=== PATIENT | male | born 1960 | race Caucasian/White ===

== ENCOUNTER 2016-09-28 18:24 | Inpatient (IN) | payer OTHER ==
[~2016-09-28] VITALS: Ht 177.8 cm; Wt 105.9 kg
[~2016-09-28 18:24] MED LIST: ACTOS30 MG PO; ADULT FOLDING1 EACH MC; AMARYL2 MG PO; AUGMENTIN875 MG PO; CELEXA20 MG PO; COUMADIN2.5 MG PO; CRESTOR10 MG PO; DAILY VALUE1 EACH PO; FERROUS SULFAT325 MG PO; JANUVIA100 MG PO; LIPITOR40 MG PO; LISINOPRIL10 MG PO; METFORMIN HCL500 MG PO; PERCOCET 5/31 TABLET PO; THERAFLU PO; VISTARIL25 MG PO
[2016-09-28 18:56] LABS: POINT-OF-CARE METER ID UU13113778
[2016-09-28 19:34] LABS: HEMATOCRIT 36.5 % (38.0-50.0); MCH 28.4 PG (29.0-34.0); MCHC 33.7 G/DL (30.0-36.0); MCV 84.3 FL (86-99); MEAN PLAT.VOLUME 9.5 uM^3 (9.0-12.4); PLATELET COUNT 212 K/uL (156-360); RBC DIS.WIDTH-CV 14.3 % (11.8-14.6); RED BLOOD COUNT 4.33 M/uL (4.00-5.50); WHITE BLOOD COUNT 5.2 K/uL (4.1-10.2)
[2016-09-28 19:42] LABS: CHLORIDE 105 mEq/L (99-109); SODIUM 139 mEq/L (136-147)
[2016-09-28 19:44] LABS: GLUCOSE 76 mg/dL (70-99)
[2016-09-28 19:45] LABS: ANION GAP 12 MEQ/L (2-14)
[2016-09-28 19:46] LABS: TOTAL BILIRUBIN 0.6 mg/dL (0.0-1.0)
[2016-09-28 19:47] LABS: ALKALINE PHOSPHATASE 80 IU/L (3-129)
[2016-09-28 19:48] LABS: GFR ESTIMATE (CALCULATED) > 59 mL/min/
[2016-09-28 19:49] LABS: UREA NITROGEN (BUN) 18 mg/dL (9-23)
[2016-09-28] MEDS ORDERED: FERROUS SULFAT325 MG PO (19:54)
[2016-09-28 19:56] LABS: LIPASE 46 U/L (1.0-51.0)
[2016-09-28] MEDS ORDERED: METFORMIN HCL500 MG PO (19:56)
[2016-09-28] MEDS ORDERED: LOPERAMIDE2 MG PO (19:57)
[2016-09-28] MEDS ORDERED: ONDANSETRON ODT8 MG PO (19:58)
[2016-09-28 23:09] LABS: ADD MIUA? NO; BILIRUBIN NEGATIVE; BLOOD NEGATIVE; COLOR YELLOW ((YELLOW)); GLUCOSE (STRIP) NEGATIVE; KETONES NEGATIVE; LEUKOCYTES NEGATIVE; NITRITE NEGATIVE; PROTEIN (STRIP) NEGATIVE; UCUL ADDED? NO; UROBILINOGEN 0.2 MG/DL (0.2-1.0)
[2016-09-29] VITALS (7 sets, daily range): BP systolic 96–132; BP diastolic 57–78
[2016-09-29 01:05] LABS: EOSINOPHIL (%) 4.1 % (0-5); EOSINOPHIL COUNT 0.2 K/uL (0-0.3); HEMATOCRIT 34.4 % (38.0-50.0); IMMATURE GRANULOCYTE (%) 0.2 % (0.0-0.7); IMMATURE GRANULOCYTE COUNT 0.1 K/uL; LYMPHOCYTE COUNT 2.3 K/uL (1.0-2.8); MCH 28.2 PG (29.0-34.0); MCHC 33.4 G/DL (30.0-36.0); MCV 84.3 FL (86-99); MEAN PLAT.VOLUME 9.8 uM^3 (9.0-12.4); MONOCYTE COUNT 0.5 K/uL (0-0.8); NEUTROPHIL (%) 46.1 % (45-76); NEUTROPHIL COUNT 2.7 K/uL (1.8-6.4); PLATELET COUNT 210 K/uL (156-360); RBC DIS.WIDTH-CV 14.3 % (11.8-14.6); RED BLOOD COUNT 4.08 M/uL (4.00-5.50); WHITE BLOOD COUNT 5.8 K/uL (4.1-10.2)
[2016-09-29 01:20] LABS: INTERNAL CONTROL VALID? YES
[2016-09-29 01:52] LABS: C DIFF TOXIN NEGATIVE (NEGATIVE)
[2016-09-29 02:00] LABS: PROBE CHECK PASS; SPECIMEN PROCESSING CONTROL PASS
[2016-09-29 06:11] LABS: HEMATOCRIT 32.9 % (38.0-50.0); MCH 28.1 PG (29.0-34.0); MCHC 32.8 G/DL (30.0-36.0); MCV 85.7 FL (86-99); PLATELET COUNT 175 K/uL (156-360); RBC DIS.WIDTH-CV 14.5 % (11.8-14.6); RBC DIS.WIDTH-SD 45.3 % (39-53); RED BLOOD COUNT 3.84 M/uL (4.00-5.50); WHITE BLOOD COUNT 4.3 K/uL (4.1-10.2)
[2016-09-29 06:36] LABS: ANION GAP 9 MEQ/L (2-14); CHLORIDE 106 MEQ/L (99-109); GFR ESTIMATE (CALCULATED) > 59 mL/min/; GLUCOSE 87 mg/dL (70-99); POTASSIUM 4.1 MEQ/L (3.7-5.4); SAMPLE HEMOLYSIS CHECK 0; SAMPLE ICTERIC CHECK 0; SAMPLE LIPEMIA CHECK 0; SODIUM 139 MEQ/L (136-147); UREA NITROGEN (BUN) 13 mg/dL (9-23)
[2016-09-30 04:00] VITALS: BP 103/61
[2016-09-30 07:28] VITALS: BP 96/63
[2016-09-30 15:08] LABS: ANION GAP 8 MEQ/L (2-14); CHLORIDE 106 MEQ/L (99-109); POTASSIUM 3.7 MEQ/L (3.7-5.4); SAMPLE HEMOLYSIS CHECK 0; SAMPLE ICTERIC CHECK 0; SAMPLE LIPEMIA CHECK 0; SODIUM 141 MEQ/L (136-147)
[2016-09-30 15:16] LABS: GFR ESTIMATE (CALCULATED) > 59 mL/min/; UREA NITROGEN (BUN) 7 mg/dL (9-23)
[2016-09-30 15:23] LABS: GLUCOSE 109 mg/dL (70-99)
[2016-09-30 15:30] VITALS: BP 108/61
[2016-09-30 23:15] VITALS: BP 106/62
[2016-10-01 07:35] LABS: EOSINOPHIL COUNT 0.3 K/uL (0-0.3); HEMATOCRIT 33.8 % (38.0-50.0); IMMATURE GRANULOCYTE (%) 0.2 % (0.0-0.7); LYMPHOCYTE COUNT 2.1 K/uL (1.0-2.8); MCH 27.9 PG (29.0-34.0); MCHC 33.1 G/DL (30.0-36.0); MCV 84.3 FL (86-99); MEAN PLAT.VOLUME 9.9 uM^3 (9.0-12.4); MONOCYTE (%) 7.1 % (3-12); MONOCYTE COUNT 0.3 K/uL (0-0.8); NEUTROPHIL (%) 40.7 % (45-76); NEUTROPHIL COUNT 1.9 K/uL (1.8-6.4); PLATELET COUNT 177 K/uL (156-360); RBC DIS.WIDTH-CV 14.4 % (11.8-14.6); RBC DIS.WIDTH-SD 44.1 % (39-53); RED BLOOD COUNT 4.01 M/uL (4.00-5.50); WHITE BLOOD COUNT 4.6 K/uL (4.1-10.2)
[2016-10-01 08:02] LABS: ANION GAP 10 MEQ/L (2-14); CHLORIDE 106 MEQ/L (99-109); GFR ESTIMATE (CALCULATED) > 59 mL/min/; GLUCOSE 123 mg/dL (70-99); POTASSIUM 3.5 MEQ/L (3.7-5.4); SAMPLE HEMOLYSIS CHECK 0; SAMPLE ICTERIC CHECK 0; SAMPLE LIPEMIA CHECK 0; SODIUM 143 MEQ/L (136-147); UREA NITROGEN (BUN) 6 mg/dL (9-23)
[2016-10-01 08:04] VITALS: BP 100/60
[2016-10-01 12:39] VITALS: BP 111/75
[2016-10-01 13:28] LABS: AMYLASE 32 IU/L (1-118); LIPASE 41 U/L (1.0-51.0)
[2016-10-01 16:00] VITALS: BP 105/54
[2016-10-01 19:50] VITALS: BP 112/56
[2016-10-01 23:25] VITALS: BP 99/59
[2016-10-02 02:55] VITALS: BP 106/66
[2016-10-02 06:23] LABS: HEMATOCRIT 33.6 % (38.0-50.0); MCH 27.9 PG (29.0-34.0); MCHC 33.3 G/DL (30.0-36.0); MCV 83.8 FL (86-99); PLATELET COUNT 186 K/uL (156-360); RBC DIS.WIDTH-CV 14.4 % (11.8-14.6); RED BLOOD COUNT 4.01 M/uL (4.00-5.50); WHITE BLOOD COUNT 5.2 K/uL (4.1-10.2)
[2016-10-02 06:46] LABS: ANION GAP 8 MEQ/L (2-14); CHLORIDE 106 MEQ/L (99-109); GFR ESTIMATE (CALCULATED) > 59 mL/min/; GLUCOSE 124 mg/dL (70-99); POTASSIUM 3.7 MEQ/L (3.7-5.4); SAMPLE HEMOLYSIS CHECK 0; SAMPLE ICTERIC CHECK 0; SAMPLE LIPEMIA CHECK 0; SODIUM 141 MEQ/L (136-147); UREA NITROGEN (BUN) 6 mg/dL (9-23)
[2016-10-02 06:51] LABS: EOSINOPHIL COUNT 0.3 K/uL (0-0.3); LYMPHOCYTE COUNT 2.2 K/uL (1.0-2.8); MONOCYTE (%) 7.7 % (3-12); MONOCYTE COUNT 0.4 K/uL (0-0.8); NEUTROPHIL (%) 44.3 % (45-76); NEUTROPHIL COUNT 2.3 K/uL (1.8-6.4)
[2016-10-02 08:00] VITALS: BP 119/68
[2016-10-02 16:58] VITALS: BP 110/71
[2016-10-02 23:20] VITALS: BP 123/72
[2016-10-03 08:48] VITALS: BP 113/65
[2016-10-03 09:02] LABS: ANION GAP 8 MEQ/L (2-14); CHLORIDE 105 MEQ/L (99-109); GFR ESTIMATE (CALCULATED) > 59 mL/min/; GLUCOSE 120 mg/dL (70-99); POTASSIUM 3.3 MEQ/L (3.7-5.4); SAMPLE HEMOLYSIS CHECK 0; SAMPLE ICTERIC CHECK 0; SAMPLE LIPEMIA CHECK 0; SODIUM 141 MEQ/L (136-147); UREA NITROGEN (BUN) 6 mg/dL (9-23)
[2016-10-03 11:21] VITALS: BP 125/72
[2016-10-03 12:39] LABS: POINT-OF-CARE METER ID UU13113819
[2016-10-03 12:43] LABS: C-REACTIVE PROTEIN 1.2 MG/L (0-10)
[2016-10-03 15:39] VITALS: BP 110/66
[2016-10-03 23:25] VITALS: BP 118/59
[2016-10-04 07:16] LABS: ANION GAP 9 MEQ/L (2-14); CHLORIDE 107 MEQ/L (99-109); GFR ESTIMATE (CALCULATED) > 59 mL/min/; GLUCOSE 120 mg/dL (70-99); POTASSIUM 3.9 MEQ/L (3.7-5.4); SAMPLE HEMOLYSIS CHECK 0; SAMPLE ICTERIC CHECK 0; SAMPLE LIPEMIA CHECK 0; SODIUM 144 MEQ/L (136-147); UREA NITROGEN (BUN) 6 mg/dL (9-23)
[2016-10-04 08:20] VITALS: BP 120/65
[2016-10-04] MEDS ORDERED: CIPROFLOXACIN500 M1 PO (15:09)
[2016-10-04] MEDS ORDERED: METRONIDAZOLE500 MG PO (15:09)
[2016-10-04] MEDS ORDERED: SUCRALFATE1 GM PO (15:10)
[2016-10-04] MEDS ORDERED: BENTYL20 MG PO (15:11)
[2016-10-04] MEDS ORDERED: PROTONIX40 MG PO (15:12)
== END 2016-10-04 16:52 | disposition home or self-care (01) | DRG 392 ==
LOC: EME 18:24 → EDOF 09-29 00:40 → 2EAST 09-29 00:40
PROVIDERS: Emergency Medicine; Family Medicine
DX: K52.9 Noninfective gastroenteritis and colitis, unspecified (principal); I95.9 Hypotension, unspecified; R63.4 Abnormal weight loss; E11.9 Type 2 diabetes mellitus without complications; E78.5 Hyperlipidemia, unspecified; I10 Essential (primary) hypertension; K29.80 Duodenitis without bleeding; K20.9 Esophagitis, unspecified
CPT/HCPCS: 74177; 80048; 80053; 81003; 82150; 82565; 82948; 83605; 83630; 83690; 84520; 85025; 85027; 86140; 87046; 87493; 87506; 88305; 88342 TC; 99281; 99284; B4087; C9113; J1170; J1650; J1815; J2250; J2405; J3010; J7030; S0030

== ENCOUNTER 2016-11-14 17:46 | Emergency (ER) | payer OTHER ==
[~2016-11-14] VITALS: Ht 177.8 cm; Wt 105.0 kg
[~2016-11-14 17:46] MED LIST changes: +BENTYL20 MG PO; +CIPROFLOXACIN500 M1 PO; +LOPERAMIDE2 MG PO; +METRONIDAZOLE500 MG PO; +ONDANSETRON ODT8 MG PO; +PROTONIX40 MG PO; +SUCRALFATE1 GM PO
[2016-11-14] MEDS ORDERED: AUGMENTIN875 MG PO (20:06)
[2016-11-14 20:15] VITALS: BP 142/81
== END 2016-11-14 20:24 | disposition home or self-care (01) ==
LOC: EME 17:46
PROC: 0HQGXZZ Repair Left Hand Skin, External Approach (ICD-10-PCS; principal; 2016-11-14)
DX: S62.633B Displaced fracture of distal phalanx of left middle finger, initial encounter for open fracture (principal); W54.0XXA Bitten by dog, initial encounter; Y93.89 Activity, other specified
CPT/HCPCS: 73130; 99281; 99284; S0020

== ENCOUNTER 2017-03-22 09:01 | Emergency (ER) | payer OTHER ==
[~2017-03-22] VITALS: Ht 177.8 cm; Wt 109.8 kg
[2017-03-22 09:11] VITALS: BP 135/76
[2017-03-22] MEDS ORDERED: METFORMIN HCL500 MG PO (10:27)
[2017-03-22] MEDS ORDERED: ROSUVASTATIN CA10 MG PO (10:28)
== END 2017-03-22 11:46 | disposition home or self-care (01) ==
LOC: EME 09:01
DX: S06.0X0A Concussion without loss of consciousness, initial encounter (principal); S50.811A Abrasion of right forearm, initial encounter; Y00.XXXA Assault by blunt object, initial encounter; Y07.59 Other non-family member, perpetrator of maltreatment and neglect; I10 Essential (primary) hypertension; E11.9 Type 2 diabetes mellitus without complications; Z96.652 Presence of left artificial knee joint
CPT/HCPCS: 70450; 99281; 99283